=== PATIENT | male | born 1955 | race Hispanic/Latino ===

== ENCOUNTER 2021-12-26 15:27 | Observation (INO) | payer OTHER ==
[~2021-12-26 15:27] MED LIST: Iopamidol-370 76% 500 ML 1 ML ONE
[2021-12-26 16:22] LABS: #Eosinphils 0.3 thou/uL (0.0-0.7); #Lymphocytes 2.1 thou/uL (1.20-3.40); #Monocytes 0.7 thou/uL (0.11-0.59); #Neutrophils 5.1 thou/uL (1.40-6.50); %Basophils 0.6 % (0.0-1.0); %Eosinophils 3.2 % (0.0-10.0); %Lymphocytes 25.6 % (21.0-51.0); %Monocytes 8.3 % (0.0-10.0); %Neutrophils 62.4 % (42.0-75.0); Hemoglobin 14.8 g/dL (14.0-18.0); Mean Corpuscular HGB CONC 33.7 g/dL (32.0-36.0); Mean Corpuscular Hemoglobin 31.6 pg (27.0-31.0); Mean Corpuscular Volume 93.7 fL (78.0-98.0); Platelet Count 189 thou/uL (130-400); RBC Distribution Width 12.5 % (11.5-14.5); White Blood Cell (WBC) Count 8.2 thou/uL (4.8-10.8)
[2021-12-26 16:46] LABS: ALT (SGPT) 20 U/L (8-55); AST (SGOT) 17 U/L (5-34); Albumin 4.2 g/dL (3.4-4.8); Alkaline Phosphatase 117 U/L (40-110); Anion Gap 14 mmol/L (10-20); BUN (Urea Nitrogen) 28 mg/dL (8.4-25.7); Bilirubin, Total 0.5 mg/dL (0.2-1.2); Calc. Creatinine Clearance 0 mL/min (70-130); Calcium 9.1 mg/dL (7.8-10.44); Carbon Dioxide 21 mmol/L (23-31); Chloride 108 mmol/L (98-107); Estimated GFR 49; Globulin 2.5 g/dL (2.4-3.5); Glucose 106 mg/dL (80-115); Potassium 4.9 mmol/L (3.5-5.1); Protein, Total 6.7 g/dL (5.8-8.1); Sodium 138 mmol/L (136-145)
[2021-12-26] MEDS ORDERED: Aspirin Chewable 81 MG TAB ONE (19:05)
[2021-12-26] MEDS ORDERED: Acetaminophen 325 MG TAB PO PRN (20:16)
[2021-12-26] MEDS ORDERED: Ondansetron ODT 4 MG TAB PO PRN (20:16)
[2021-12-26] MEDS ORDERED: Acetaminophen 650 MG Suppository PR PRN (20:16)
[2021-12-26] MEDS ORDERED: Nitroglycerin 0.4 MG TAB (25 Tab Bottle) SL PRN (20:16)
[2021-12-26] MEDS ORDERED: Ondansetron PF 4 MG/2 ML Vial IVP PRN (20:16)
[2021-12-26 20:28] LABS: Troponin I 0.011 ng/mL (< 0.028)
[2021-12-26] MEDS ORDERED: Morphine 4 MG/ML VIAL SLOW IVP PRN (20:42)
[2021-12-26] MEDS ORDERED: Enoxaparin Sodium 120 MG/0.8 ML SYRINGE SC SCH (21:15)
[2021-12-26] MEDS: Pantoprazole 40 MG VIAL IVP SCH ×2 (21:40→21:45)
[2021-12-26] MEDS: Sodium Chloride 0.9% 1,000 ML IV SCH (21:45)
[2021-12-26 22:03] VITALS: BMI 35.1
[2021-12-26 22:56] LABS: Troponin I Less than 0.010 ng/mL (< 0.028)
[2021-12-27 05:07] LABS: #Basophils 0.1 thou/uL (0.0-0.2); #Eosinphils 0.3 thou/uL (0.0-0.7); #Lymphocytes 2.3 thou/uL (1.20-3.40); #Monocytes 0.5 thou/uL (0.11-0.59); #Neutrophils 3.1 thou/uL (1.40-6.50); %Basophils 1.1 % (0.0-1.0); %Eosinophils 4.3 % (0.0-10.0); %Lymphocytes 36.9 % (21.0-51.0); %Monocytes 8.3 % (0.0-10.0); %Neutrophils 49.5 % (42.0-75.0); Hemoglobin 13.5 g/dL (14.0-18.0); Mean Corpuscular HGB CONC 33.2 g/dL (32.0-36.0); Mean Corpuscular Hemoglobin 30.9 pg (27.0-31.0); Mean Corpuscular Volume 93.1 fL (78.0-98.0); Mean Platelet Volume 7.9 fL (7.4-10.4); Platelet Count 177 thou/uL (130-400); RBC Distribution Width 12.4 % (11.5-14.5); Red Blood Cell (RBC) Count 4.37 mill/uL (4.70-6.10); White Blood Cell (WBC) Count 6.3 thou/uL (4.8-10.8)
[2021-12-27 05:26] LABS: Anion Gap 12 mmol/L (10-20); BUN (Urea Nitrogen) 21 mg/dL (8.4-25.7); Calc. Creatinine Clearance 89 mL/min (70-130); Calcium 8.6 mg/dL (7.8-10.44); Carbon Dioxide 20 mmol/L (23-31); Chloride 111 mmol/L (98-107); Estimated GFR 70; Glucose 100 mg/dL (80-115); Potassium 4.2 mmol/L (3.5-5.1); Sodium 139 mmol/L (136-145)
[2021-12-27] MEDS: Sodium Chloride 0.9% 1,000 ML IV SCH (07:57)
[2021-12-27] MEDS ORDERED: Enoxaparin Sodium 40 MG/0.4 ML SYRINGE SC SCH (09:00)
[2021-12-27] MEDS ORDERED: Enoxaparin Sodium 100 MG/ML SYRINGE SC SCH (09:00)
[2021-12-27] MEDS: Aspirin Chewable 81 MG TAB PO SCH (09:19)
[2021-12-27] MEDS: Pantoprazole 40 MG VIAL IVP SCH (09:20)
[2021-12-27 12:24] LABS: Cardiac Risk 2.8 (Less than 4.5)
[2021-12-27] MEDS ORDERED: Rosuvastatin 20 MG TAB PO SCH (21:00)
[2021-12-28] MEDS: Pantoprazole 40 MG VIAL IVP SCH (09:17)
[2021-12-28] MEDS: Aspirin Chewable 81 MG TAB PO SCH (09:17)
[2021-12-28 13:06] VITALS: BP 119/62; TEMP 98
== END 2021-12-28 13:15 | disposition home or self-care (01) ==
LOC: ERS 15:27 → 2SW 19:44
PROVIDERS: ADMIT Student in an Organized Health Care Education/Training Program; ATTEND Hospitalist
DX: R07.89 Other chest pain (principal); R10.13 Epigastric pain; F17.210 Nicotine dependence, cigarettes, uncomplicated; I10 Essential (primary) hypertension; I25.10 Atherosclerotic heart disease of native coronary artery without angina pectoris; I48.91 Unspecified atrial fibrillation; K21.9 Gastro-esophageal reflux disease without esophagitis; N17.9 Acute kidney failure, unspecified; K76.0 Fatty (change of) liver, not elsewhere classified; E78.00 Pure hypercholesterolemia, unspecified; I25.2 Old myocardial infarction; Z79.899 Other long term (current) drug therapy; Z95.1 Presence of aortocoronary bypass graft; Z95.5 Presence of coronary angioplasty implant and graft; Z20.822 Contact with and (suspected) exposure to COVID-19
CPT/HCPCS: 36415; 71275; 74174; 80048; 80053; 80061; 83880; 84484; 85025; 93005; 94760; 96372; 96374; 96376; C9113; G0378; J1650; J7050; Q9967; U0003; U0005